=== PATIENT | female | born 1945 | race Caucasian/White ===

== ENCOUNTER 2019-02-25 16:28 | Inpatient (IN) | payer OTHER ==
[~2019-02-25] VITALS: Ht 157.5 cm; Wt 47.6 kg
[2019-03-12] MEDS ORDERED: [UNRECOGNIZED DRUG - OTHER] PO (10:06)
[2019-03-12] MEDS ORDERED: SYNTHROID100 MCG PO (10:07)
[2019-03-17] MEDS ORDERED: ENBREL50 MG/1 M1 SUBCUTANEO (08:06)
[2019-03-17] MEDS ORDERED: FENOFIBRATE160 MG PO (08:07)
[2019-03-17] MEDS ORDERED: METRONIDAZOLE500 MG PO (08:07)
[2019-03-17] MEDS ORDERED: RANITIDINE HCL300 MG PO (08:07)
[2019-03-20] MEDS ORDERED: PERCOCET 5-3251 EACH PO (12:29)
[2019-03-20] MEDS ORDERED: OMEPRAZOLE20 MG PO (12:29)
[2019-03-20] MEDS ORDERED: INTESTINEX680 M1 PO (12:29)
== END 2019-03-20 14:55 | disposition home or self-care (01) | DRG 331 ==
LOC: SURG 03-12 09:30 → O/R 03-17 06:05 → SURH 03-17 06:05 → SURG 03-17 07:00 → SURH 03-17 12:06
PROVIDERS: ADMIT Surgery
PROC: 0DJD8ZZ Inspection of Lower Intestinal Tract, Via Natural or Artificial Opening Endoscopic (ICD-10-PCS; 2019-03-17)
PROC: 0DTN4ZZ Resection of Sigmoid Colon, Percutaneous Endoscopic Approach (ICD-10-PCS; principal; 2019-03-17 07:00)
DX: K57.20 Diverticulitis of large intestine with perforation and abscess without bleeding (principal); E03.8 Other specified hypothyroidism; E88.09 Other disorders of plasma-protein metabolism, not elsewhere classified